=== PATIENT | male | born 1960 | race Caucasian/White ===

== ENCOUNTER 2018-08-31 14:49 | Emergency (ER) | payer SELFPAY ==
[~2018-08-31] VITALS: Ht 180.3 cm; Wt 99.8 kg
[2018-08-31] MEDS ORDERED: SODIUM CHLORIDE 0.9% 1000ML 1,000 ML IV STA ×2 (16:21→17:51)
[2018-08-31] MEDS ORDERED: CEFTRIAXONE SOD 1 GM VIAL IV ONE ×2 (16:30→18:20)
[2018-08-31 16:34] LABS: CLARITY,URINE TURBID (CLEAR); COLOR,URINE RED (YELLOW); LEUKOCYTE ESTERASE ,URINE 2+ (NEGATIVE); NITRITE,URINE POSITIVE (NEGATIVE)
[2018-08-31 16:35] LABS: BILIRUBIN,URINE 3+ (NEGATIVE); KETONES,URINE 2+ (NEGATIVE); PROTEIN,URINE DIPSTICK 2+ (NEGATIVE); URINE UROBILINOGEN 8 mg/dL (0.2 - 1)
[2018-08-31 16:46] LABS: RBC,URINE >50 /HPF (0-5)
[2018-08-31] MEDS ORDERED: AMIODARONE HCL 900 MG in DEXTROSE 5% 500ML 500 ML IV ONE (17:15)
[2018-08-31] MEDS ORDERED: AMIODARONE HCL 150MG 100 ML IV ONE (17:15)
[2018-08-31] MEDS ORDERED: ONDANSETRON HCL INJ 2 MG/ML VIAL IV STA ×2 (17:51→20:36)
[2018-08-31] MEDS ORDERED: MORPHINE SULFATE INJ 4 MG/ML INJ IV STA ×2 (17:51→19:52)
[2018-08-31 18:27] LABS: BASOPHILS % 0.2 % (0.0-1.0); EOSINOPHILS # (AUTO) 0.1 (0.0-0.4); EOSINOPHILS % 0.6 % (0.0-6.0); HEMATOCRIT 44.6 % (38.2-49.6); HEMOGLOBIN 15.3 g/dL (14.0-18.0); LYMPHOCYTES % 10.9 % (18.0-39.1); MEAN CORPUSCULAR HEMOGLOBIN 31.5 pg (28-32); MEAN CORPUSCULAR HGB CONC 34.3 g/dL (31-35); MEAN CORPUSCULAR VOLUME 91.8 fL (81-99); MONOCYTES # (AUTO) 0.8 (0.2-0.8); MONOCYTES % 9.3 % (4.4-11.3); NEUTROPHILS % 78.7 % (38.7-80.0); PLATELET COUNT 183 x10e3/uL (140-360); RED BLOOD COUNT 4.86 x10e6/uL (4.3-5.7); RED CELL DISTRIBUTION WIDTH 12.6 % (11.7-14.4)
[2018-08-31 18:41] LABS: INR 0.93; PROTHROMBIN TIME 13.3 seconds (11.9-14.5)
[2018-08-31 18:42] LABS: PARTIAL THROMBOPLASTIN TIME 40.5 seconds (23.8-35.5)
[2018-08-31 18:51] LABS: ALBUMIN 4.3 g/dL (3.5-5.0); ALBUMIN/GLOBULIN RATIO 1.1 (0.8-2.0); ANION GAP 16.1 mmol/L (8-16); CALCIUM 9.7 mg/dL (8.4-10.2); CREATININE, SERUM 1.63 mg/dL (0.72-1.25); POTASSIUM 4.1 mmol/L (3.5-5.1)
--- NOTE | 2018-08-31 19:07 | Diagnostic Imaging Report ---
EXAM: CT Abdomen and Pelvis WITHOUT contrast INDICATION: Blood in urine \S\STONE PROTOCOL COMPARISON: None. TECHNIQUE: Abdomen and pelvis were scanned utilizing a multidetector helical scanner from the lung base to the pubic symphysis without administration of IV contrast. Absence of intravenous contrast decreases sensitivity for detection of focal lesions and vascular pathology. Coronal and sagittal reformations were obtained. Stone protocol is performed. IV CONTRAST: None ORAL CONTRAST: Water COMPLICATIONS: None RADIATION DOSE: Total DLP: 647.43 mGy*cm Estimated effective dose: (DLP x 0.015 x size factor) mSv CTDIvol has been reviewed. It is below the limits set by the Radiation Protocol Committee (RPC). FINDINGS: LINES and TUBES: None. LOWER THORAX: Unremarkable HEPATOBILIARY: The liver is diffuse hypodense compared to the spleen, consistent with diffuse hepatic diffuse hepatic steatosis. No focal hepatic lesions. No biliary ductal dilation. GALLBLADDER: No radio-opaque stones or sludge. No wall thickening. SPLEEN: No splenomegaly. PANCREAS: No focal masses or ductal dilatation. ADRENALS: No adrenal nodules KIDNEYS/URETERS: Right kidney: Right kidney is edematous. The upper pole calyces is distended with a hyperdense material measuring 53 Hounsfield units. This causes distention and renal cortical thinning of the upper pole of the right kidney. The lesion measures 3.4 x 3.9 cm (series 3 image 61) and 5.3 cm in craniocaudal dimension (series 401 image 70). This extends into the renal pelvis with minimal involvement of the inferior pole calyxes (series 401 image 64). Inflammatory changes extends to the right hemicolon. Indeterminate 1.9 cm mildly peripherally hyperdense lesion in the upper pole of the right kidney (series 3 image 64). Left kidney: No hydronephrosis. No cystic or solid mass lesions. 0.1 to 0.2 cm stone in the left UVJ (series 3, image 159). No left hydroureter hydronephrosis. GI TRACT: No abnormal distention, wall thickening, or evidence of bowel obstruction. Appendix is not clearly identified. There is however no fat stranding or adenopathy in the right lower quadrant to suggest appendicitis. PELVIC ORGANS/BLADDER: Unremarkable. LYMPH NODES: No lymphadenopathy. VESSELS: There is mild atherosclerotic disease in the aorta and major arterial branches. PERITONEUM / RETROPERITONEUM: No free air or fluid. BONES: Unremarkable. SOFT TISSUES: Unremarkable. IMPRESSION: 1. Punctate 0.2 cm stone in the left UVJ. 2. Masslike filling defect in the upper collecting system of the right kidney measuring 3.4 x 3.9 x 5.3 cm. This is highly concerning for malignancy such as transitional cell carcinoma. 3. 1.9 cm peripherally hyperdense lesion in the superior pole of the right kidney. Recommend CT abdomen and pelvis renal mass protocol including the pelvis to evaluate for transitional cell carcinoma. (If performed today, noncontrast portion of the exam can be skipped). Signed by: Dr. Andrea Patino M.D. on 08/31/2018 7:04 PM
[2018-08-31] MEDS ORDERED: HYDROMORPHONE 1MG/1ML INJ IV STA (20:30)
[2018-08-31] MEDS ORDERED: HYDROMORPHONE 2MG/ML 2 MG/ML ML ONE (20:41)
[2018-08-31 21:33] VITALS: BP 151/92
== END 2018-08-31 21:51 | disposition short-term general hospital (02) ==
LOC: ER 14:49 → EDBD 14:49 → ER 21:51
DX: R31.9 Hematuria, unspecified (principal); N28.89 Other specified disorders of kidney and ureter
CPT/HCPCS: 36415; 74176; 80053; 81001; 85025; 85610; 85730; 86850; 86900; 87086; 99284; J0696; J1170; J2270; J2405; J7030; J7060